=== PATIENT | male | born 1950 | race Caucasian/White ===

== ENCOUNTER 2016-11-11 07:44 | Inpatient (IN) | payer OTHER ==
[~2016-11-11] VITALS: Ht 175.3 cm; Wt 86.2 kg
[2016-11-11] VITALS (8 sets, daily range): BP systolic 135–159; BP diastolic 64–86
[2016-11-11] MEDS ORDERED: PROP80CA2 PO (07:49)
[2016-11-11] MEDS ORDERED: [UNRECOGNIZED DRUG - OTHER] (07:49)
[2016-11-11] MEDS ORDERED: LOV40 SQ (07:49)
[2016-11-11] MEDS ORDERED: OMEP20TA15 PO (07:49)
[2016-11-11 08:27] LABS: HEMATOCRIT. 42.4 % (42.0-52.0); MEAN CORPUSCULAR HEMOGLOBIN 29.8 pg (28.0-32.0); MEAN CORPUSCULAR VOLUME 90.4 fL (80.0-94.0); PLATELET 334 x1000/uL (130-400); RED BLOOD CELL COUNT 4.69 mill/uL (4.7-6.1); RED CELL DISTRIBUTION WIDTH 18.4 % (11.6-14.6)
[2016-11-11 08:34] LABS: INR 1.5; PROTHROMBIN TIME 15.1 sec
[2016-11-11] MEDS ORDERED: SODIUM CHLORIDE 0.9% 1,000 ML IV ONE (08:35)
[2016-11-11 08:41] LABS: CARBON DIOXIDE 24 mEq/L (21-32); CHLORIDE 88 mEq/L (98-107)
[2016-11-11 08:49] LABS: BG BASE EXCESS 0.2 mmol/L (-2.0-2.0); BG CARBOXYHEMOGLOBIN 1.2 % (0.5-1.5); BG DEOXYHEMOGLOBIN 6.3 % (0.0-5.0); BG FRACTION INSPIRED OXYGEN 21; BG HCO3 ACT 25.1 mmol/L (22.0-26.0); BG METHEMOGLOBIN 0.4 % (0.0-1.5); BG OXYGEN SATURATION 93.6 % (92.0-98.5); BG OXYHEMOGLOBIN 92.1 % (94.0-97.0); BG PCO2 41.5 mmHg (35.0-45.0); BG PH 7.399 (7.350-7.450); BG PO2 68.2 mmHg (75.0-100.0); BG SAMPLE SITE RIGHT BRACHIAL; BG TOTAL HEMOGLOBIN 15.2 g/dL (12.0-18.0); BG VENT MODE ROOM AIR
[2016-11-11 08:59] LABS: PLATELET ESTIMATE NORMAL
[2016-11-11 09:09] LABS: INR 1.5; PROTHROMBIN TIME 15.1 sec
[2016-11-11] MEDS ORDERED: DOCUSATE SODIUM 100MG CAPSULE PO PRN (11:30)
[2016-11-11] MEDS ORDERED: TRAMADOL 50MG TABLET PO PRN (11:30)
[2016-11-11] MEDS ORDERED: IPRATROPIUM/ALBUTEROL 0.5-3(2.5)MG/3ML NEB INH PRN (11:30)
[2016-11-11] MEDS ORDERED: VANCOMYCIN 1 G PREMIX 200 ML IV SCH (11:30)
[2016-11-11] MEDS ORDERED: NITROGLYCERIN 0.4MG TABLET SL SL PRN (11:30)
[2016-11-11] MEDS ORDERED: ONDANSETRON HCL 4MG/2ML VIAL IV PRN (11:30)
[2016-11-11] MEDS ORDERED: ACETAMINOPHEN 325MG TABLET PO PRN (11:30)
[2016-11-11] MEDS ORDERED: LORAZEPAM 2MG/ML CPJ IV PRN (11:30)
[2016-11-11] MEDS ORDERED: NA PHOS,M-B/NA PHOS,DI-BA ENEMA 118ML PR PRN (11:30)
[2016-11-11] MEDS ORDERED: DIPHENHYDRAMINE 50MG/ML VIAL IV PRN (11:30)
[2016-11-11] MEDS ORDERED: MAGNESIUM/ALUMINUM HYDROXIDE/SIMETHICONE 30ML UDC PO PRN (11:30)
[2016-11-11] MEDS ORDERED: CLONIDINE 0.1MG TABLET PO PRN (11:30)
[2016-11-11] MEDS ORDERED: MORPHINE SULFATE 4 MG/ML CPJ (NOT FOR IM USE) IV PRN (11:45)
[2016-11-11 12:04] LABS: T4 FREE 1.5 ng/dL (0.76-1.46)
[2016-11-11] MEDS: GUAIFENESIN/DM 600MG/30MG ER TAB 12HR PO SCH ×2 (12:50→20:09)
[2016-11-11] MEDS: ZINC SULFATE 220 MG ( 50 ) CAPSULE PO SCH (12:50)
[2016-11-11] MEDS: SODIUM CHLORIDE 0.9% 1,000 ML IV SCH (12:51)
[2016-11-11] MEDS: DILTIAZEM HCL 60MG TABLET PO SCH ×3 (12:51→23:44)
[2016-11-11] MEDS: ENOXAPARIN 40MG/0.4ML SYR SUBCUT SCH (12:52)
[2016-11-11] MEDS ORDERED: VANCOMYCIN 1500MG in DEXTROSE 5% WATER 250ML IV SCH (13:00)
[2016-11-11] MEDS: PIPERACILLIN/TAZ 3.375G PREMIX 50 ML IV SCH ×2 (13:40→20:10)
[2016-11-11] MEDS ORDERED: VANCOMYCIN 1250MG in DEXTROSE 5% WATER 250ML IV SCH (14:00)
[2016-11-11 16:06] LABS: CREATINE KINASE MB FRACTION 5.2 ng/mL (0.5-3.6); TROPONIN I 0.15 ng/mL (0.00-0.04)
[2016-11-11] MEDS: FAMOTIDINE 20MG/2ML VIAL IV SCH (20:09)
[2016-11-11] MEDS ORDERED: PAMIDRONATE DISODIUM 90 MG in SODIUM CHLORIDE 0.9% 500 ML IV ONE (21:00)
[2016-11-11] MEDS ORDERED: ZOLPIDEM TARTRATE 5MG TABLET PO PRN (21:00)
[2016-11-11] MEDS: VANCOMYCIN 1 G PREMIX 200 ML IV SCH (22:29)
[2016-11-12] VITALS (12 sets, daily range): BP systolic 126–166; BP diastolic 62–81
[2016-11-12] MEDS: IPRATROPIUM/ALBUTEROL 0.5-3(2.5)MG/3ML NEB HHN SCH ×6 (00:44→20:35)
[2016-11-12 01:43] LABS: CREATINE KINASE MB FRACTION 2.9 ng/mL (0.5-3.6); TROPONIN I 0.13 ng/mL (0.00-0.04)
[2016-11-12] MEDS: PIPERACILLIN/TAZ 3.375G PREMIX 50 ML IV SCH ×3 (05:24→20:12)
[2016-11-12] MEDS: DILTIAZEM HCL 60MG TABLET PO SCH ×3 (05:26→17:46)
[2016-11-12 07:04] LABS: HEMATOCRIT. 41.1 % (42.0-52.0); HEMOGLOBIN. 13.5 g/dL (14.0-18.0); MEAN CORPUSCULAR VOLUME 91.2 fL (80.0-94.0); MEAN PLATELET VOLUME 8.9 fl (7.4-10.4); PLATELET 322 x1000/uL (130-400); RED BLOOD CELL COUNT 4.51 mill/uL (4.7-6.1); RED CELL DISTRIBUTION WIDTH 19.3 % (11.6-14.6)
[2016-11-12 07:53] LABS: CARBON DIOXIDE 26 mEq/L (21-32); CHLORIDE 91 mEq/L (98-107)
[2016-11-12] MEDS: ZINC SULFATE 220 MG ( 50 ) CAPSULE PO SCH (08:35)
[2016-11-12] MEDS: VANCOMYCIN 1 G PREMIX 200 ML IV SCH ×2 (08:35→20:39)
[2016-11-12] MEDS: GUAIFENESIN/DM 600MG/30MG ER TAB 12HR PO SCH ×2 (08:35→20:23)
[2016-11-12] MEDS: FAMOTIDINE 20MG/2ML VIAL IV SCH ×2 (08:35→20:24)
[2016-11-12 09:43] LABS: PLATELET ESTIMATE NORMAL
[2016-11-12] MEDS: SODIUM CHLORIDE 0.9% 1,000 ML IV SCH ×2 (11:44→17:20)
[2016-11-12] MEDS: ENOXAPARIN 40MG/0.4ML SYR SUBCUT SCH (11:45)
== END 2016-11-12 22:36 | disposition short-term general hospital (02) | DRG 871 ==
LOC: EDBD 07:44 → ER 08:12 → 5EST 09:00 → EDBEDREQTM 09:19 → EDBEDREQ 09:19 → ENRESERV 10:09 → 5EST 18:32
PROVIDERS: ADMIT Internal Medicine; ATTEND Internal Medicine
DX: A41.9 Sepsis, unspecified organism (principal); E43 Unspecified severe protein-calorie malnutrition; G92 Toxic encephalopathy; C78.7 Secondary malignant neoplasm of liver and intrahepatic bile duct; J18.9 Pneumonia, unspecified organism; C34.90 Malignant neoplasm of unspecified part of unspecified bronchus or lung; R64 Cachexia; K74.60 Unspecified cirrhosis of liver; E87.1 Hypo-osmolality and hyponatremia; E83.52 Hypercalcemia; E87.5 Hyperkalemia; I10 Essential (primary) hypertension; K21.9 Gastro-esophageal reflux disease without esophagitis; W06.XXXA Fall from bed, initial encounter; Z68.28 Body mass index [BMI] 28.0-28.9, adult; Y93.89 Activity, other specified; Y92.89 Other specified places as the place of occurrence of the external cause; Y99.8 Other external cause status; Z79.899 Other long term (current) drug therapy; Z79.01 Long term (current) use of anticoagulants
CPT/HCPCS: 36415; 36600; 71010; 80053; 80061; 82375; 82550; 82553; 82805; 83036; 83605; 84439; 84443; 84484; 85025; 85610; 87040; 93005; 93306; 93970; 94640; 94664; 96360; 96361; 99285; J1650; J2270; J2430; J2543; J3370; J3490; J7030; J7040; J7060; J7620